=== PATIENT | female | born 1990 | race Caucasian/White ===

== ENCOUNTER 2021-05-05 09:40 | Inpatient (IN) | payer OTHER, SELFPAY ==
--- NOTE | 2021-04-30 12:15 | PCM.HP.OB ---
HPI - General HPI Narrative MICHAEL ROSAS, is a 31 YOF For primary c/s due to suspected macrosomia. Maternal Data Information Final LORI: 05/20/21 Final LORI Source: US <20 weeks Gestational age: on 04/1505/05/21 ROS Constitutional Constitutional: Denies fatigue, fever(s) or malaise Eyes Eyes: Denies change in vision ENT HEENT: Denies dizziness or headache(s) Cardiovascular Cardiovascular: Denies chest pain, dyspnea or lightheadedness Respiratory/Chest Respiratory/Chest: Denies cough or dyspnea Gastrointestinal Gastrointestinal: Denies change in bowel habits Genitourinary Genitourinary: Denies burning urination or genital lesions Integumentary Integumentary: Denies rash Neurologic Neurologic: Denies confusion, dizziness, headache(s), numbness or weakness Physical Exam Const alert and no apparent distress General Appearance: cooperative HEENT normocephalic Resp normal respiratory effort Cardio regular rate GI soft to palpation GI Narrative: gravid, nontender, appropriate for gestational age Extremity no calf tenderness General Extremity: edema Skin no wounds Rashes: No rashes noted Psych activity/motor behavior normal Labs Labs Labs: No Data to Display Assessment & Plan (1) 37 weeks gestation of : (2) High-risk in third trimester: (3) Maternal obesity syndrome in third trimester: (4) BMI 45.0-49.9, adult: (5) macrosomia during in third trimester: PLAN: r/b/a/p to primary c/s vs induction of labor reviewed w/ the patient, her questions were answered to her satisfaction and she desires primary c/s. (6) Gestational hypertension affecting first :
[2021-05-05] VITALS (17 sets, daily range): BP systolic 97–148; BP diastolic 37–91; PULSE 84–102; RESP 16–20; TEMP 36–37.1; O2SAT 93–99; BMI 47.6
[2021-05-05] MEDS: Lactated Ringers 1,000 ML 999 ML IV (10:00)
[2021-05-05 10:26] LABS: Absolute Lymphocyte Count 1.99 X10^3/uL (0.83-4.51); Absolute Neutrophil Count 6.7 X10^3/uL (2.0-7.7); Basophil# 0.03 X10^3/uL; Basophil% 0.3 % (0-1); Eosinophil# 0.15 X10^3/uL; Eosinophils% 1.6 % (0-5); Hematocrit 35.7 % (37-47); Hemoglobin 11.2 g/dL (12.0-15.0); Lymphocyte # 1.99 X10^3/ul (0.83-4.51); Lymphocyte % 21.3 % (19-41); Mean Corp Hgb Conc 31.4 g/dL (32-36); Mean Corpuscular Hgb 25.7 pg (27.0-32.0); Mean Corpuscular Volume 81.9 fL (81-99); Mean Platelet Vol. 10.7 fl (6.2-12.0); Monocyte# 0.51 X10^3/uL; Monocyte% 5.4 % (0-10); NRBC Flagged by Analyzer 0 % (0-5); Neutrophil # 6.65 X10^3/uL (2.7-7.7); Neutrophil % 71.1 % (47-70); Platelet Count 252 K/mm3 (150-450); RBC Distribution Width CV 14.7 % (11.6-14.6); RBC Distribution Width SD 44.1 fl (35.1-43.9); Red Blood Count 4.36 M/mm3 (4.2-5.4); White Blood Count 9.4 K/mm3 (4.4-11.0)
[2021-05-05] MEDS: Acetaminophen 500 MG Tablet 1000 MG PO ×2 (10:28→18:07)
[2021-05-05] MEDS: Lactated Ringers 1,000 ML 150 ML IV (11:19)
[2021-05-05] MEDS: Sodium Citrate/Citric Acid 30 ML UDC PO (11:53)
--- NOTE | 2021-05-05 12:49 | OP.PCM_ITS ---
Maternal Data Information Final LORI: 05/26/21 Gestational age: 37 Details Operative Information Date of Procedure: 05/05/21 Pre-Operative Diagnosis: gestational hypertension, LGA fetus, unengaged head and unfavorable cervix at term Post-Operative Diagnosis: same Classification: Scheduled Procedure Type: low transverse van driver helper #1: Floridalma Haines van driver helper #2: [id number] Type of Anesthesia: Spinal Anesthesiologist: Anna Holcomb Special Medications: duramorph Antibiotic Given: Ancef 3 grams IV x1 Drain: Lynne to straight drain Estimated Blood Loss: 800 Fluids Replaced: 1000 Procedure Start Time: 12:23 Procedure Stop Time: 12:55 Time of Delivery: 12: Findings Description of Procedure: Normal uterus tubes and ovaries, normal placenta with three-vessel cord The patient was taken to the operating room. She was prepped and draped in the dorsal supine position with a leftward tilt. A Pfannenstiel skin incision was made approximately 2 cm above the symphysis pubis and carried through to underlying layer fascia with the scalpel. The fascia was incised incised in the midline and extended laterally with blunt dissection. The fascia was dissected off the rectus muscles superiorly with blunt dissection. The rectus muscles were in the midline and the peritoneum was entered bluntly. The peritoneal incision was stretched and the bladder blade was placed. The uterine incision was made in a low transverse fashion with the scalpel and extended superiorly and inferiorly with blunt dissection. The Darrion O retractor was placed in the usual sterile fashion. The amniotic membranes were ruptured bluntly and clear amniotic fluid returned. The head was unengaged. The infant's head was brought to the incision in the flexed position and engaged but was difficult to deliver because of how large it was. The vacuum was placed on the flexion point and the vacuum created 550 mmHg. I pulled with 1 pull and no pop offs, the head delivered easily and the vacuum was then removed. The remainder of the infant was delivered with gentle traction and fundal pressure in the standard fashion. The mouth and nares were bulb suctioned. The cord was clamped and cut as the was stimulated. Cord clamping was delayed. The was handed off to the waiting nursing staff. The placenta was delivered with fundal massage and gentle traction in the standard fashion. The uterus was exteriorized and cleared of all clots and debris. The cervix was dilated with a ring forcep. The uterine incision was closed with #1 Vicryl in a running locked fashion. A second layer of the same suture was used in an imbricating fashion. The incision was examined and was found to be hemostatic. The uterus was placed back into the peritoneal cavity and hemostasis was again confirmed. The rectus muscles were examined and any bleeding was Bovie cauterized. The parietal peritoneum and rectus muscles were closed en bloc with an 0 Vicryl running suture. The surgical teams outer gloves were then changed. The rectus fascia was examined and any bleeding was Bovie cauterized and the rectus fascia was closed with loop PDS suture in a running standard fashion. The subcutaneous tissue was examining and any bleeding was Bovie cauterized. The subcutaneous tissue was reapproximated with 3-0 Vicryl suture. The skin was closed in a subcuticular fashion by the ENVIRONMENTAL ENGINEERING INTERN with me present in the labor and delivery suite. I performed the remainder of the procedure with assistance. All sponge, lap, and needle counts were correct. The patient was taken to her room for recovery in a stable condition. Presentation: Positive for Vertex Amniotic Membrane Rupture Type: Artificial Amniotic Fluid Description: Clear Placental Delivery Description: Expressed Placenta Disposition: [facility] Specimen(s) Sent to Pathology: none Cord Vessel Description: 3 Vessels Cord Entanglement: Around neck x 1, tight Nuchal Cord Compression: Without compression A Gender: Male (Angel) (1 minute): 9 (5 minute): 9 Delayed Cord Clamping: Yes Complications Complications: none Admit VTE Documentation VTE Present on Admission: No VTE Mechan Device Prophylaxis: SCD's VTE Pharm Prophylaxis Ordered: Yes
[2021-05-05] MEDS: Oxytocin 30 units/NS 500 ml 30 UNITS/500 ML IV.SOLN 167 UNITS IV (13:10)
[2021-05-05] MEDS: Ketorolac 30 MG/ML Syringe IV ×2 (13:59→19:27)
[2021-05-05] MEDS: Lactated Ringers 1,000 ML 100 ML IV (16:09)
[2021-05-06] VITALS (9 sets, daily range): BP systolic 112–137; BP diastolic 51–85; PULSE 78–90; RESP 16–20; TEMP 36.2–36.9; O2SAT 92–98
[2021-05-06] MEDS: Enoxaparin 40 MG/0.4 ML Syringe SC ×3 (00:55→22:26)
[2021-05-06] MEDS: Acetaminophen 500 MG Tablet 1000 MG PO ×4 (00:56→17:47)
[2021-05-06] MEDS: Ketorolac 30 MG/ML Syringe IV ×2 (02:53→07:46)
[2021-05-06] MEDS: 0.9% Saline Lock 10 ML Syringe IV ×2 (02:54→07:48)
[2021-05-06 06:16] LABS: Hemoglobin 9.8 g/dL (12.0-15.0); Mean Corp Hgb Conc 31.6 g/dL (32-36); Mean Corpuscular Hgb 26.3 pg (27.0-32.0); Mean Corpuscular Volume 83.3 fL (81-99); Mean Platelet Vol. 10.7 fl (6.2-12.0); Platelet Count 246 K/mm3 (150-450); RBC Distribution Width CV 14.9 % (11.6-14.6); RBC Distribution Width SD 45.4 fl (35.1-43.9); Red Blood Count 3.72 M/mm3 (4.2-5.4); White Blood Count 15.6 K/mm3 (4.4-11.0)
--- NOTE | 2021-05-06 07:12 | PN.OBGYN_ITS ---
Subjective Subjective Pain well controlled. Average lochia. Has been up to ambulate. Able to urinate without difficulty. Objective Data Objective Data Vital Signs: Vital Signs Temp Pulse Resp BP Pulse Ox 97.6 F L 85 18 137/85 H 95 05/05/21 19:08 05/06/21 04:13 05/06/21 06:13 05/06/21 04:13 05/06/21 04:13 Oxygen Delivery Method Room Air Weight: 138 kg Body Mass Index (BMI) 47.6 Intake & Output: Intake and Output for Last 24 Hours 05/04/21 05/05/21 05/06/21 23:59 23:59 23:59 Intake Total 1812.5 / 1812.5 880 / 880 Output Total 475 / 475 900 / 900 Balance 1337.5 / 1337.5 -20 / -20 Lab / Micro Data Result Diagrams: 05/06/21 06:00 Labs: Laboratory Results - last 24 hr 05/05/21 10:00: WBC 9.4, RBC 4.36, Hgb 11.2 L, Hct 35.7 L, MCV 81.9, MCH 25.7 L, MCHC 31.4 L, RDW Std Deviation 44.1 H, RDW Coeff of Manjinder 14.7 H, Plt Count 252, MPV 10.7, Immature Gran % (Auto) 0.300, Neut % (Auto) 71.1 H, Lymph % (Auto) 21.3, [place] % (Auto) 5.4, Eos % (Auto) 1.6, Baso % (Auto) 0.3, Absolute Neuts (auto) 6.7, Absolute Lymphs (auto) 1.99, Nucleated RBC % 0 05/05/21 10:01: Blood Type O POSITIVE, Antibody Screen NEGATIVE 05/06/21 06:00: WBC 15.6 H, RBC 3.72 L, Hgb 9.8 L, Hct 31.0 L, MCV 83.3, MCH 26.3 L, MCHC 31.6 L, RDW Std Deviation 45.4 H, RDW Coeff of Manjinder 14.9 H, Plt Coun t 246, MPV 10.7 Physical Exam Const alert General Appearance: cooperative GI GI Narrative: soft, moderate distention, fundus firm, appropriately tender. Abdominal bandage clean dry and intact Assessment & Plan (1) deliv NOS-unsp: PLAN: Postoperative day #1 status post primary section. Patient is doing well. Mild postop blood loss anemia appropriate for blood loss during surgery. is breast-feeding and doing well. Likely discharge home tomorrow. Blood pressures are stable.
[2021-05-06] MEDS: DiphenhydrAMINE 25 MG Capsule PO (10:10)
[2021-05-06] MEDS: Senna/Docusate Sodium 1 Tablet PO (10:37)
--- NOTE | 2021-05-06 13:55 | NURSING ---
This chief nursing officer reviewed the documentation completed by Courtney Archer student nurse and it is completed.
[2021-05-06] MEDS: Ibuprofen 600 MG Tablet PO ×2 (14:20→20:04)
[2021-05-06] MEDS: oxyCODONE 5 MG Tablet PO (20:04)
[2021-05-07] MEDS: Acetaminophen 500 MG Tablet 1000 MG PO ×3 (01:02→13:28)
[2021-05-07] MEDS: Ibuprofen 600 MG Tablet PO ×3 (01:03→13:28)
[2021-05-07 01:15] VITALS: BP 124/81; PULSE 85; RESP 20; TEMP 36.4
--- NOTE | 2021-05-07 01:18 | NURSING ---
small bruise noted
--- NOTE | 2021-05-07 07:25 | NURSING ---
bedside report given to Darya Sanchez RN and Jossie Escalera RN who are assuming care of pt at this time
[2021-05-07 08:38] VITALS: BP 127/71; PULSE 81; RESP 18; TEMP 36.4
[2021-05-07] MEDS: Enoxaparin 40 MG/0.4 ML Syringe SC (10:18)
[2021-05-07] MEDS: Senna/Docusate Sodium 1 Tablet PO (10:19)
--- NOTE | 2021-05-07 11:21 | PCM.PN.OB ---
Subjective Subjective Pain controlled Objective Data Objective Data Vital Signs: Vital Signs Temp Pulse Resp BP Pulse Ox 97.5 F L 81 18 127/71 H 98 05/07/21 08:38 05/07/21 08:38 05/07/21 08:38 05/07/21 08:38 05/06/21 21:25 Oxygen Delivery Method Room Air Weight: 304 lb 3.806 oz Body Mass Index (BMI) 47.6 Intake & Output: Intake and Output for Last 24 Hours 05/05/21 05/06/21 05/07/21 23:59 23:59 23:59 Intake Total 1812.5 / 1812.5 880 / 880 Output Total 475 / 475 900 / 900 Balance 1337.5 / 1337.5 -20 / -20 Lab / Micro Data Result Diagrams: 05/06/21 06:00 Physical Exam Const alert, oriented x3 and no apparent distress HEENT normocephalic GI soft to palpation, non-tender and non-distended GI Narrative: fundus firm, mid & below umbilicus Incision - bandage c/d/i Extremity normal to inspection and no calf tenderness Assessment & Plan (1) deliv NOS-unsp: COMMENT: POD#2 PLAN: D/c home
--- NOTE | 2021-05-07 11:22 | PCM.DC ---
Discharge Instructions Diet Discharge Diet: No restrictions Activity Discharge Activity: May Shower May resume sexual activity in: 6 weeks Weight Bearing Status: Weight bearing as tolerated Dressing / Incision Call your doctor if your incision/area has: Continuous Slow Oozing, Sudden Increased Bleeding, Increased Pain/ Swelling, Increased Redness, Foul Smelling Discharge and Swelling at the incision site Call your doctor if you observe: Fever of 101 or Higher, Coldness, Increased Pain, Change in Color, Inability to urinate, Inability to have a bowel movement, Using more than 1 pad per hour, Shortness of breath, Dizziness, Fainting spells, Chest pain, Increased palpitations (irregular heartbeat), Calf discomfort and Uncontrolled pain Suture Line Care: Avoid Pulling/Pushing and Avoid Pinching/Bending Remove Dressing in: 1 week Cleanse incision/area with: Soap & Water Follow Up Care Please Follow Up With: Aida Small MD When: Follow up in 2 and 6 weeks for visits. Test Results: Test results from this visit will be discussed in further detail at your follow-up appointment, if applicable. Discharge Plan Admission Admit Date/Time: 05/05/21 09:40 Primary Reason for Your Visit: section Attending Provider: Aida Small Primary Care Provider: Care Physician,Faiza Primary Discharge Orders/Prescriptions Prescriptions: New acetaminophen 500 mg Tablet 1,000 mg PO Q6 Qty: 0 RF: 0 ibuprofen 600 mg Tablet 600 mg PO Q6H Qty: 0 RF: 0 Continued [id number] 1 mg Tablet 1 tab PO DAILY RF: 0 Discontinued aspirin [Baby Aspirin] 81 mg Tablet,Chewable 81 mg PO DAILY RF: 0 Referrals / Follow Up: Care Physician,No Primary [Primary Care Provider] - Disposition Disposition (needs filled in before D/C Order can be placed): Home, Self Care
[2021-05-07 14:24] VITALS: BP 133/65; PULSE 76; RESP 16; TEMP 36.4
--- NOTE | 2021-05-07 15:51 | CASEMGMT ---
Social Work Brief Assessment Labor and Delivery Unit Patient Address: [address] [place] [address] Phone number: [phone] Date of Referral/Notification: 05/06/2021 Time of Referral: [phone] Referred By: Dr. Aida Small Date of Intervention: 05/03/2014 Time of Intervention: 1130 Reason for Referral: Anxious Informant: Medical record and mother of baby (MOB) Toshia Wilhelm; father of baby (FOB) Nelson Wilhelm also present for part of conversation. History: KEEGAN is a 31-year-old female, to the FOB who is age 38. for 3 years. baby Rafael Wilhelm was born 05/06/2023 via section at 37 weeks gestation. Concern for macrosomia. weight 9 pounds 12 ounces. Apgars 9 and 9 at 1 and 5 minutes of life respectively. care started at 7 weeks gestation and regular thereafter. 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 Maternal drug screen negative on 10/13/2020. Record indicates a history of marijuana use prior to and stopped upon realization of . MOB reports she would use THC Gummies once in a while, but again did not use this during . MOB denies any mental health history such as depression or anxiety. No history of suicidal ideations. [place] depression screen completed this date is a score of 3, which is below the threshold for depression or anxiety. Assessment: Met with MOB and FOB together, and then along with the MOB to complete the [place] depression screen. MOB and FOB both engaged in conversation when meeting with this publications writer. FOB held the baby and was appropriate and gentle. MOB also held the baby, and was also appropriate. MOB and FOB report to have adequate housing and transportation. All necessary supplies are in place including safe sleep spaces. It is reported that the FOB gets a week off of work and there is a large family around to help when needed. Addressed with the MOB however the delivery went. MOB admitted to some anxiety, regarding the fear of the unknown as has never had any type of surgery or medical procedure done. MOB reports that since the procedure was offered to be doing well and feels to be coping. No voiced concerns about mood or anxiety at this time. Educated both parents to mood and anxiety disorders, risk factors, and that it is okay to let others know and seek support should symptoms arise. During private conversation with the MOB, MOB denied any domestic violence concerns, and denied any concerns about substances. MOB denies intention to use any illicit substances in the future. Educated MOB that should intention change it is recommended not to breast-feed. MOB reports again no intent to use THC in the future. No drug screen done for the baby. No positive drug screens at all during . No further referrals are indicated. Provided MOB and FOB with mood and anxiety disorder packet. Information on safe sleeping, shaken baby prevention, nurse visit program in the [facility] and help me grow. MOB declines referrals to any supportive services such as helping grow or the nurse visit program. No voiced concerns by nursing staff regarding parent-child interactions or bonding. Plan: MOB and will discharge home. Resource information has been provided for home going. No further needs requested or indicated. -URMILA Fall, CURING PRESS OPERATOR *This note was generated with [employer] dictation software. It may contain incorrect words, spelling, and punctuation that were not noted in review of the chart prior to signing*
== END 2021-05-07 15:45 | disposition home or self-care (01) | DRG 788 ==
PROVIDERS: Admitting Provider Obstetrics & Gynecology; Referring Provider Obstetrics & Gynecology; Visit Provider Obstetrics & Gynecology
PROC: 10D00Z1 Extraction of Products of Conception, Low, Open Approach (ICD-10-PCS; CPT 59514; principal; 2021-05-05 11:45)
DX: O36.63X0 Maternal care for excessive fetal growth, third trimester, not applicable or unspecified (principal); O13.4 Gestational [pregnancy-induced] hypertension without significant proteinuria, complicating childbirth; O69.81X0 Labor and delivery complicated by cord around neck, without compression, not applicable or unspecified; O99.214 Obesity complicating childbirth; E66.9 Obesity, unspecified; Z3A.37 37 weeks gestation of pregnancy; Z37.0 Single live birth
CPT/HCPCS: 85025; 85027; 86850; 86900; 86901; 99218; J7120; A4216; G0378; J2405